=== PATIENT | female | born 1975 ===

== ENCOUNTER 2023-08-14 22:45 | Emergency (ER) | payer OTHER, MEDICAID, SELFPAY ==
[2023-08-14 23:19] VITALS: BP 128/78; PULSE 73; RESP 18; TEMP 36.8; O2SAT 97; BMI 22.8
--- NOTE | 2023-08-14 23:58 | DI.RAD.S_ITS ---
PROCEDURE: XR SHOULDER LT MIN 2V INDICATIONS: LUE PAIN, BLISTER ON HAND, SWOLLEN FINGERS TECHNIQUE: 2 views of the shoulder were acquired. COMPARISON: [facility], CR, XR HAND LT MIN 3V, 08/15/2023, 0:32. FINDINGS: Bones: No fractures or dislocations. No suspicious bony lesions. Visualized ribs appear intact. Soft tissues: No suspicious soft tissue calcifications. The visualized lung demonstrates an unremarkable appearance. IMPRESSION: No acute bony abnormality. Dictated by: Tylor Wu M.D. on 08/15/2023 at 0:07 Approved by: Tylor Wu M.D. on 08/15/2023 at 0:07
--- NOTE | 2023-08-14 23:58 | ED_ITS ---
HPI - Extremity Injury (Upper) General Chief Complaint: Extremity Injury, Upper Stated Complaint: lt arm pain/spreading Time Seen by Provider: 08/14/23 23:36 Source: patient Mode of arrival: Ambulatory History of Present Illness HPI narrative: 47-year-old female presents for left hand pain and swelling as well as left shoulder pain. Patient denies trauma, she states that prior to symptom onset she picked something off of her deck and they gave her a blister. She states that she popped the blister which temporarily gave her some relief, but she has noticed swelling in her bilateral hands, left greater than right. She states that she took 200 mg of ibuprofen but the pain woke her up and she was here today for evaluation. Related Data Previous Rx's Medication Instructions Recorded cephalexin 500 mg capsule 500 mg PO QID #20 caps 08/15/23 Allergies Allergy/AdvReac Type Severity Reaction Status Date / Time No Known Drug Allergies Allergy Verified 08/15/23 01:25 Review of Systems Review of Systems Narrative: See HPI Exam Initial Vital Signs Initial Vital Signs: Vital Signs Temperature 98.3 F 08/14/23 23:19 Pulse Rate 73 08/14/23 23:19 Respiratory Rate 18 08/14/23 23:19 Blood Pressure 128/78 08/14/23 23:19 Pulse Oximetry 97 08/14/23 23:19 Oxygen Delivery Method Room Air 08/14/23 23:19 Const: Awake, alert, no acute distress, appears chronically unwell, older than stated age Cardiac: regular rate, regular rhythm RESP: unlabored, clear bilaterally, no wheezing MSK: Generalized tenderness to palpation over shoulder joint, no deformity, full range of motion, slight puffy swelling of bilateral lower extremities Skin: Warm, Dry, small, healing blister over palm of left hand Neuro: AO x3, CN II-XII grossly intact, moves all extremities Course Orders Ordered: Discontinued Medications Hydrocodone Bitart/Acetaminophen (Hydrocodone/Acet 5/325 Tablet) 1 tab PO NOW ONE Stop: 08/15/23 01:23 Last Admin: 08/15/23 01:26 Dose: 1 tab Documented By: SILVANA Lidocaine/Epinephrine (Lidocaine 1% W/Epi) 4 ml INJ INTRA-OP ONE Stop: 08/15/23 01:23 Last Admin: 08/15/23 01:28 Dose: 4 ml Documented By: KM Vital Signs Vital signs: Vital Signs - 8 hr 08/14/23 23:19 Temperature 98.3 F Pulse Rate 73 Respiratory Rate 18 Blood Pressure 128/78 Pulse Oximetry 97 Oxygen Delivery Method Room Air MDM - Extremity Injury (Upper) Imaging Data Extremity x-ray #1: Radiologist's Impression: PROCEDURE: XR HAND LT MIN 3V INDICATIONS: LUE PAIN, BLISTER ON HAND, SWOLLEN FINGERS TECHNIQUE: 3 views of the hand(s) acquired. COMPARISON: [facility], CR, XR SHOULDER LT MIN 2V, 08/15/2023, 0:32. FINDINGS: Bones: There is an apparent acute appearing fracture fragment adjacent to the 3rd metacarpal phalangeal joint, measuring 3-4 mm. A donor site cannot be seen. No additional focal bony abnormality can be seen. Soft tissues: Generalized soft tissue swelling can be seen. IMPRESSION: Apparent 3-4 mm fracture fragment seen adjacent to the 3rd metacarpophalangeal joint. No donor site can be seen. Differential diagnosis includes a radiopaque foreign body. If it would be helpful for clinical management decision making in this patient with this given history, please consider a dedicated CT study for further evaluation. Generalized soft tissue swelling is noted. Dictated by: Tylor Wu M.D. on 08/15/2023 at 0:07 Approved by: Tylor Wu M.D. on 08/15/2023 at 0:09 [facility] Narrative Medical decision making narrative: Left upper extremity pain and swelling of hand. Physical exam is notable for mild swelling of the left hand without obvious cellulitis. X-ray shows possible fracture fragment, however this is in a different location than the blister that patient has on the palm of her left hand. Patient exhibits intermittent agitation and I do question if there may be some component of drug use involved. As a precaution a prescription for antibiotics sent to pharmacy of choice. Patient given strict ER return precautions and PCP follow up advised. Discharge Plan Departure Patient Disposition: Home Clinical Impression: Hand swelling, Foreign body hand Instructions: DI for Cellulitis -- Adult Activity Restrictions/Additional Instructions: Antibiotics are sent to your pharmacy for hand swelling. There seemed to be a foreign body in your hand on the x-ray, however this was in a not accessible site and I am unable to remove it here in the emergency department. Prescriptions: New cephalexin 500 mg capsule 500 mg PO QID Qty: 20 0RF Stand Alone Forms: Patient Portal/API
[2023-08-15] MEDS: HYDROCODONE/ACET 5/325 TABLET 1 TAB PO (01:26)
[2023-08-15] MEDS: LIDOCAINE 1% W/EPI 4 ML INJ (01:28)
[2023-08-15 01:52] VITALS: BP 135/80; PULSE 75; RESP 18; TEMP 36.7
== END 2023-08-15 01:53 | disposition home or self-care (01) ==
PROVIDERS: Emergency Provider Emergency Medicine
DX: S60.552A Superficial foreign body of left hand, initial encounter (principal); M79.89 Other specified soft tissue disorders
CPT/HCPCS: 73030; 73130; 99283